=== PATIENT | male | born 2000 | race African-American/Black ===

== ENCOUNTER 2021-12-07 15:39 | Emergency (ER) | payer OTHER ==
[~2021-12-07] VITALS: Ht 200.7 cm; Wt 62.2 kg
[2021-12-07 18:46] VITALS: BP 137/89
[2021-12-07] MEDS ORDERED: AMOX-277 PO (18:55)
[2021-12-07] MEDS ORDERED: PRED20TA2 PO (18:55)
== END 2021-12-07 18:56 | disposition home or self-care (01) ==
LOC: ER 15:39
DX: J02.9 Acute pharyngitis, unspecified (principal)